=== PATIENT | male | born 1990 | race Two or more races ===

== ENCOUNTER 2018-12-01 22:28 | Emergency (ER) | payer OTHER ==
[~2018-12-01] VITALS: Ht 182.9 cm; Wt 74.8 kg
--- NOTE | 2018-12-01 22:40 | NUR ---
PT BIBSELF C/O OF ANXIETY. PT STATE HE WAS DRINKING YESTERDAY AND TODAY HE STARTED TO FEEL AN ANXIETY ATTACK COMING AROUND 20 MIN AGO. PT STATES HX OF ANXIETY. PT AXO4. RESPIRATIONS EVEN AND UNLABORED. PT PUT ON THE PHARMACIST PER DIEM AND PULSE OX. PENDING EVAL FROM ER .
[2018-12-01] MEDS ORDERED: ONDANSETRON HCL/PF 4 MG/2 ML VIAL ONE (23:18)
[2018-12-01] MEDS ORDERED: LORAZEPAM INJ 2 MG/ML VIAL ONE (23:19)
[2018-12-01 23:27] LABS: BASOPHILS % (AUTO) 0.1 % (0.0-2.0); HEMATOCRIT 46 % (39-51); HEMOGLOBIN 15.8 g/dL (13.5-17.5); LYMPHOCYTES # (AUTO) 1.5 /CMM (0.8-4.8); LYMPHOCYTES % (AUTO) 9.9 % (20.0-44.0); MEAN CORPUSCULAR HGB CONC 35 g/dl (31.0-36.0); MEAN CORPUSCULAR VOLUME 93 fL (80-96); NEUTROPHILS # (AUTO) 12.2 /CMM (1.8-8.9); PLATELET COUNT (AUTO) 353 /CMM (150-450); RED BLOOD CELL COUNT(AUTO) 4.89 MIL/uL (4.5-6.0); WHITE BLOOD COUNT (AUTO) 14.7 K/uL (4.3-11.0)
[2018-12-01] MEDS ORDERED: ONDANSETRON HCL/PF 4 MG/2 ML VIAL IV ONE (23:30)
[2018-12-01] MEDS ORDERED: IV NS 0.9% 1,000 ML IV PRN (23:30)
[2018-12-01] MEDS ORDERED: LORAZEPAM INJ 2 MG/ML VIAL IV ONE (23:30)
[2018-12-01 23:34] LABS: CALCIUM, SERUM 10.1 mg/dL (8.5-10.1); CREATININE 1.3 mg/dL (0.6-1.3)
[2018-12-01] MEDS ORDERED: POTASSIUM CHLORIDE 20 MEQ TAB.PRT.SR PO ONE (23:58)
[2018-12-02] MEDS ORDERED: POTASSIUM CHLORIDE 20 MEQ TAB.PRT.SR PO ONE
[2018-12-02] MEDS ORDERED: IV NS 0.9% 1,000 ML IV PRN
--- NOTE | 2018-12-02 00:20 | NUR ---
Patient does not wish to proceed with medical care recommended by Dr. CAI. Patient given information related to possible complications, up to and including , which could occur as a result of leaving the hospital at this time. Patient verbalizes understanding of risks involved due to leaving against medical advice. Patient has signed AMA form.
[2018-12-02 00:27] VITALS: BP 140/89
== END 2018-12-02 00:27 | disposition left against medical advice (07) ==
LOC: ER 22:30
DX: F41.9 Anxiety disorder, unspecified (principal); E87.6 Hypokalemia
CPT/HCPCS: 36415; 80048; 85025; 93005; 96374; 96375; 99284; J2060; J2405; J7030

== ENCOUNTER 2024-05-11 21:05 | Emergency (ER) | payer OTHER ==
[~2024-05-11] VITALS: Ht 180.3 cm; Wt 93.0 kg
[2024-05-11 21:13] VITALS: TEMP 97.9
[2024-05-11] MEDS ORDERED: ONDANSETRON 4 MG TAB.RAPDIS SL ONE (21:30)
[2024-05-11] MEDS: IV NS 0.9% 1,000 ML BAG IV ONE (21:48)
[2024-05-11] MEDS ORDERED: ONDANSETRON HCL/PF 4 MG/2 ML VIAL ONE (21:55)
[2024-05-11] MEDS ORDERED: PHENOBARBITAL SODIUM 130 MG/ML VIAL ONE (21:58)
[2024-05-11] MEDS: ONDANSETRON HCL/PF - ER 4 MG/2 ML VIAL IV ONE (22:03)
[2024-05-11] MEDS: PHENOBARBITAL SODIUM 130 MG/ML VIAL IV ONE (22:04)
[2024-05-12 00:21] VITALS: BP 133/70; O2SAT 100
== END 2024-05-12 00:22 ==
LOC: ER 21:20
DX: F10.129 Alcohol abuse with intoxication, unspecified (principal); R10.9 Unspecified abdominal pain; R11.2 Nausea with vomiting, unspecified; R25.1 Tremor, unspecified; F17.200 Nicotine dependence, unspecified, uncomplicated; G47.33 Obstructive sleep apnea (adult) (pediatric); F41.9 Anxiety disorder, unspecified; Z60.2 Problems related to living alone; Y90.9 Presence of alcohol in blood, level not specified
CPT/HCPCS: 99284; 96374; 96361; 96375; J2560; J2405 ×2